=== PATIENT | male | born 2000 | race Caucasian/White ===

== ENCOUNTER 2021-06-07 19:47 | Emergency (ER) | payer MEDICAID ==
[~2021-06-07] VITALS: Ht 172.7 cm; Wt 64.0 kg
[2021-06-07] MEDS ORDERED: SODIUM CHLORIDE 0.9% 1,000 ML IV ONE (20:15)
[2021-06-07 20:27] LABS: BASOPHILS % 0.3 % (0.0-2.0); EOSINOPHILS % 0.5 % (0.0-5.0); HEMATOCRIT. 47.5 % (42.0-52.0); MEAN CORPUSCULAR HEMOGLOBIN 28.9 pg (28.0-32.0); MEAN CORPUSCULAR VOLUME 85.8 fL (80.0-94.0); MEAN PLATELET VOLUME 8.9 fl (7.4-10.4); MONOCYTES % 7.5 % (2.0-8.0); NEUTROPHILS % 66.7 % (40.0-76.0); PLATELET 288 x1000/uL (130-400); RED BLOOD CELL COUNT 5.54 mill/uL (4.7-6.1); RED CELL DISTRIBUTION WIDTH 13.6 % (11.6-14.6)
[2021-06-07 20:35] LABS: CHLORIDE 106 mEq/L (98-107)
[2021-06-08] VITALS: BP 119/60
== END 2021-06-08 01:20 | disposition home or self-care (01) ==
LOC: ER 19:47
DX: R07.9 Chest pain, unspecified (principal)
CPT/HCPCS: 36415; 71045; 76700; 80053; 82962; 83605; 83690; 83880; 84443; 84484; 85025; 85379; 93005; 96360; 99285; J7030

== ENCOUNTER 2021-07-04 00:07 | Emergency (ER) | payer MEDICAID ==
[~2021-07-04] VITALS: Ht 167.6 cm; Wt 60.0 kg
[2021-07-04 01:32] LABS: BASOPHILS % 0.5 % (0.0-2.0); EOSINOPHILS % 1.9 % (0.0-5.0); HEMATOCRIT. 47.8 % (42.0-52.0); HEMOGLOBIN. 16.5 g/dL (14.0-18.0); LYMPHOCYTES % 29.6 % (20.0-50.0); MEAN CORPUSCULAR HEMOGLOBIN 29.5 pg (28.0-32.0); MEAN CORPUSCULAR VOLUME 85.6 fL (80.0-94.0); MEAN PLATELET VOLUME 8.1 fl (7.4-10.4); MONOCYTES % 10.7 % (2.0-8.0); NEUTROPHILS % 57.3 % (40.0-76.0); PLATELET 288 x1000/uL (130-400); RED BLOOD CELL COUNT 5.59 mill/uL (4.7-6.1); RED CELL DISTRIBUTION WIDTH 13.3 % (11.6-14.6)
[2021-07-04 01:41] LABS: CHLORIDE 104 mEq/L (98-107)
[2021-07-04 01:50] LABS: *AMPHETAMINES SCREEN URINE NEGATIVE (NEGATIVE); *BARBITURATES SCREEN URINE NEGATIVE (NEGATIVE); *BENZODIAZEPINES SCREEN URINE NEGATIVE (NEGATIVE); *COCAINE SCREEN URINE NEGATIVE (NEGATIVE)
[2021-07-04 01:51] LABS: CANNABINOID URINE SCREEN NEGATIVE (NEGATIVE); METHADONE URINE SCREEN NEGATIVE (NEGATIVE); OPIATES URINE SCREEN NEGATIVE (NEGATIVE); PHENCYCLIDINE URINE SCREEN NEGATIVE (NEGATIVE)
[2021-07-04 03:00] VITALS: BP 122/68
== END 2021-07-04 03:05 | disposition home or self-care (01) ==
LOC: ER 00:07
DX: F41.9 Anxiety disorder, unspecified (principal); G93.49 Other encephalopathy; F32.A Depression, unspecified
CPT/HCPCS: 36415; 80053; 80305; 85025; 93005; 99284

== ENCOUNTER 2022-10-30 15:14 | Emergency (ER) | payer MEDICAID ==
[~2022-10-30] VITALS: Ht 165.1 cm; Wt 67.3 kg
[2022-10-30 15:27] VITALS: BP 132/82; PULSE 94; RESP 16; TEMP 98.3; O2SAT 100
[2022-10-30 15:46] LABS: BASOPHILS % 0.4 % (0.0-2.0); EOSINOPHILS % 1.2 % (0.0-5.0); HEMATOCRIT. 44.2 % (42.0-52.0); HEMOGLOBIN. 15.1 g/dL (14.0-18.0); LYMPHOCYTES % 33.3 % (20.0-50.0); MEAN CORPUSCULAR HEMOGLOBIN 29.6 pg (28.0-32.0); MEAN CORPUSCULAR VOLUME 86.5 fL (80.0-94.0); MONOCYTES % 8.4 % (2.0-8.0); NEUTROPHILS % 56.7 % (40.0-76.0); PLATELET 291 x1000/uL (130-400); RED BLOOD CELL COUNT 5.11 mill/uL (4.7-6.1); RED CELL DISTRIBUTION WIDTH 13.2 % (11.6-14.6)
[2022-10-30 16:02] LABS: CHLORIDE 106 mEq/L (98-107)
[2022-10-30 19:52] LABS: CLARITY URINE CLEAR (CLEAR); COLOR URINE YELLOW (YELLOW); KETONES URINE NEGATIVE (NEGATIVE); LEUKOCYTE ESTERASE URINE NEGATIVE (NEGATIVE); NITRITE URINE NEGATIVE (NEGATIVE); OCCULT BLOOD URINE NEGATIVE (NEGATIVE); PROTEIN URINE NEGATIVE (NEGATIVE); SPECIFIC GRAVITY URINE 1.024 (1.005-1.030)
[2022-11-03 06:08] LABS: NEISSERIA GONORRHOEAE NAA Negative (Negative)
== END 2022-10-30 21:08 | disposition home or self-care (01) ==
LOC: ER 15:14
DX: N43.3 Hydrocele, unspecified (principal); N50.812 Left testicular pain
CPT/HCPCS: 36415; 76870; 80053; 81003; 85025; 87491; 87591; 93976; 99284